=== PATIENT | female | born 1985 | race African-American/Black ===

== ENCOUNTER 2020-07-31 20:26 | Emergency (ER) | payer MEDICAID ==
[~2020-07-31] VITALS: Ht 170.2 cm; Wt 91.0 kg
[2020-07-31 20:43] VITALS: BP 137/87
== END 2020-07-31 20:50 | disposition left against medical advice (07) ==
LOC: ER 20:26
DX: M54.9 Dorsalgia, unspecified (principal); Z53.21 Procedure and treatment not carried out due to patient leaving prior to being seen by health care provider

== ENCOUNTER 2022-04-03 09:17 | Emergency (ER) | payer MEDICAID ==
[~2022-04-03] VITALS: Ht 162.6 cm; Wt 100.0 kg
[2022-04-03 09:26] VITALS: BP 134/90
== END 2022-04-03 15:48 | disposition left against medical advice (07) ==
LOC: ER 09:17
DX: Z53.21 Procedure and treatment not carried out due to patient leaving prior to being seen by health care provider (principal); F20.9 Schizophrenia, unspecified